=== PATIENT | male | born 1970 | race Caucasian/White ===

== ENCOUNTER 2016-10-31 13:53 | Emergency (ER) | payer MEDICARE, OTHER ==
[~2016-10-31] VITALS: Ht 160 cm; Wt 112.5 kg
[~2016-10-31 13:53] MED LIST: ASPI81TA3 PO; ATEN-51 PO; CYCL-319 PO; ETOD400T PO; FLUO20CA38 PO; HYDR-3498 PO; IBUP-1542 PO; IBUP800T25 PO; LISI20TA11 PO; MIRT45TA PO; NOV SC; OMEP20CA16 PO; ONDA4TAB35 PO; ONDA4TAB8 PO; OXYC-284 PO; PEN500 PO; SIMV20TA2 PO; SS SC; TRAZ300T15 PO
[2016-10-31 13:55] VITALS: Ht 160 cm; Wt 112.5 kg
--- NOTE | 2016-10-31 15:36 | RADRPT ---
PROCEDURE: XR Chest. CLINICAL INDICATION: Cough. TECHNIQUE: Single frontal view. COMPARISON: 08/02/2015. FINDINGS: The lungs are clear. The heart size is normal. There is no pleural effusion or pneumothorax. There are old healed right rib fractures. IMPRESSION: 1. Old healed right rib fractures. 2. Otherwise normal chest radiograph. RPTAT: QQ .Jay Biggs MD, MD Date Time Electronically viewed and signed by .Jay Biggs MD, on 10/31/2016 15:36 .R/
[2016-10-31] MEDS ORDERED: ALBU8.5H3 INH (15:47)
[2016-10-31] MEDS ORDERED: AZIT250T94 PO (15:47)
[2016-10-31] MEDS ORDERED: D-ME473S2 PO (15:48)
[2016-10-31] MEDS ORDERED: POLY10DR19 BOTH EYES (15:51)
--- NOTE | 2016-12-05 09:30 | ERD ---
ER Documentation Chief Complaint Date/Time DATE: 12/05/16 TIME: 09:27 Chief Complaint COUGH,ST HPI Patient is a 46 year old male with a past medical history of drug abuse and multiple visits to the ER and asthma who presents with cough, runny nose and congestion and bilateral eye itchiness x 2 days. Patient states his mother has similar symptoms. Patient states that he has not tried over the counter medication for his symptoms. He denies fevers, chills, hemoptysis, night sweats or TB exposure. Denies leg pain or leg swelling. denies shortness of breath, difficulty breathing or chest pain. Denies headache or dizziness. Denies abdominal pain, nausea, vomiting or diarrhea. Patient states that "promethazine with codeine always is prescribed to me." ROS All systems reviewed and are negative except as per history of present illness. Medications Home Meds Active Scripts Polymyxin B Sulfate-TMP* (Polymyxin B-TMP Eye Drops*) 10 Ml Drops, 1 DROP BOTH EYES QID for 7 Days, EA Prov:DAYANA RAMOS PA-C 10/31/16 Dextromethorphan Hb-Promethazine Hcl* (Promethazine DM* Syrup) 473 Ml Syrup, 5 ML PO Q6 Y for COUGH for 7 Days, ML Prov:DAYANA RAMOS PA-C 10/31/16 Albuterol Sulfate* (Proair HFA*) 8.5 Gm Hfa.aer.ad, 2 PUFF INH Q4, #1 INHALER Prov:DAYANA RAMOS PA-C 10/31/16 Azithromycin* (Zithromax*) 250 Mg Tablet, 250 MG PO .JOSE DIRECTED, #6 TAB TAKE 500 MG (2 TABS) THE FIRST DAY THEN 250 MG (1 TAB) DAYS 2-5 Prov:DAYANA RAMOS PA-C 10/31/16 Ibuprofen* (Motrin*) 600 Mg Tab, 600 MG PO Q6H Y for PAIN AND OR ELEVATED TEMP, #30 TAB Prov:NAKUL CHURCHILL MD 08/06/15 Cyclobenzaprine Hcl* (Cyclobenzaprine Hcl*) 10 Mg Tablet, 10 MG PO TID, #15 TAB Prov:ALBERT SCHROEDER 08/02/15 Ibuprofen* (Motrin*) 600 Mg Tab, 600 MG PO Q6, #30 TAB Prov:ALBERT SCHROEDER [employer] 08/02/15 Hydrocodone Bit-Acetaminophen* ([place]*) 5-325 Mg Tab, 1 TAB PO Q6 Y for PAIN, # 15 TAB Prov:ALBERT SCHROEDER [employer] 08/02/15 Ondansetron Hcl* (Zofran*) 4 Mg Tablet, 4 MG PO Q6H for NAUSEA AND/OR VOMITING, #30 TAB Prov:ALBERT SCHROEDER [employer] 06/17/15 Ondansetron Hcl* (Zofran* ODT) 4 mg -ODT Tab.disper, 4 MG PO Q6 Y for NAUSEA AND OR VOMITING, #6 TAB [facility] 06/16/15 Etodolac (Etodolac) 400 Mg Tablet, 400 MG PO Q6 Y for PAIN, #10 TAB Prov:[facility] 06/16/15 Oxycodone Hcl-Acetaminophen* (Percocet*) 10-325 Mg Tablet, 1 TAB PO Q6 Y for PAIN LEVEL 7-10, #16 TAB Prov[facility] 06/16/15 Hydrocodone Bit-Acetaminophen* ([place]*) 5-325 Mg Tab, 1 TAB PO Q6 Y for PAIN, # 7 TAB Prov:ALBERT SCHROEDER [employer] 03/28/15 Penicillin V Potassium* (Penicillin V K*) 500 Mg Tab, 500 MG PO QID for 10 Days , TAB Prov:ELDA,ALBERT C 03/28/15 Ibuprofen* (Motrin*) 800 Mg Tab, 800 MG PO Q6H Y for PAIN AND OR ELEVATED TEMP, #30 TAB Prov:ARTI SHARMA PA-C 10/04/14 Hydrocodone Bit-Acetaminophen* ([place]*) 5-325 Mg Tab, 1 TAB PO Q6 Y for PAIN, # 15 TAB Prov:JAYLEN ALFONSO NP 10/04/14 Reported Medications Omeprazole* (Omeprazole*) 20 Mg Capsule.dr, 20 MG PO BID, CAP 03/18/14 Mirtazapine* (Mirtazapine* ODT) 45 Mg/Udtablet Tab.rapdis, 90 MG PO HS, TAB 03/18/14 Simvastatin (Simvastatin) 20 Mg Tablet, 20 MG PO HS, TAB 03/18/14 Insulin Aspart* (Novolog Insulin Vial*) 100 U/Ml Vial, 0 SC SLIDING SCALE AC, VIAL 03/18/14 Lisinopril* (Lisinopril*) 20 Mg Tablet, 20 MG PO BID, TAB 03/18/14 Insulin Human Regular (Novolin-R U-100) 100 Unit/Ml Soln, 0 SC SLIDING SCALE AC , EA 03/18/14 Atenolol* (Atenolol*) 25 Mg Tablet, 25 MG PO DAILY, TAB 03/18/14 Aspirin* (Aspirin* Chew) 81 Mg Tab.chew, 81 MG PO DAILY, TAB.CHEW 03/18/14 Trazodone Hcl* (Trazodone Hcl*) 300 Mg Tablet, 300 MG PO HS 05/15/11 Fluoxetine Hcl* (Prozac*) 20 Mg Capsule, 20 MG PO BID 05/15/11 Allergies Allergies: Coded Allergies: No Known Drug Allergies (Verified Allergy, Unknown, 08/06/15) PMhx/Soc History of Surgery: No Anesthesia Reaction: No Hx Neurological Disorder: No Hx Respiratory Disorders: No Hx Cardiac Disorders: No Hx Psychiatric Problems: No Hx Miscellaneous Medical Probl: No Hx Alcohol Use: No Hx Substance Use: No Hx Tobacco Use: No Smoking Status: Never smoker FmHx Family History: No coronary disease, No diabetes, No other Physical Exam Physical Exam GENERAL: Well-developed, well-nourished male. Appears in no acute distress. Speaking in full sentences per HEAD: Normocephalic, atraumatic. EYES: Pupils are equally reactive bilaterally. EOMs grossly intact. Mild conjunctival erythema and bilateral eyes. With discharge. ENT: Moist mucous membranes. No uvula deviation. No kissing tonsils. No exudates. NECK: Supple. No lymphadenopathy or thyromegaly. No meningismus. negative kernig. negative brudinski. LUNG: Clear to auscultation bilaterally. No rhonchi, wheezing, rales or coarse breath sounds. No retractions. HEART: Regular rate and rhythm. No murmurs, rubs or gallops. Extremities: Equal pulses bilaterally. No peripheral clubbing, cyanosis or edema. No unilateral leg swelling. NEUROLOGIC: Alert and oriented. Moving all four extremities. 5/5 strength in all extremities. Normal speech. Steady gait. SKIN: Normal color. Warm and dry. No rashes or lesions. Capillary refill < 2 seconds Procedures/MDM ER COURSE: I kept the patient and/or family informed of laboratory and diagnostic imaging results throughout the emergency room course. IMAGING STUDIES [place] [address] Radiology Main Line: [phone] DIAGNOSTIC IMAGING REPORT Patient: SAMMI HUERTA : 1970 Age: 46 Sex: M MR #: [id number] DOS: 10/31/16 1449 Ordering MD: DAYANA RAMOS PA-C Location: [facility] Room/Bed: PROCEDURE: XR Chest. CLINICAL INDICATION: Cough. TECHNIQUE: Single frontal view. COMPARISON: 08/02/2015. FINDINGS: The lungs are clear. The heart size is normal. There is no pleural effusion or pneumothorax. There are old healed right rib fractures. IMPRESSION: 1. Old healed right rib fractures. 2. Otherwise normal chest radiograph. RPTAT: QQ .Jay Biggs MD, MD Date Time Electronically viewed and signed by .Jay Biggs MD, MD on 10/31/2016 15:36 .R/ CC: DAYANA RAMOS PA-C MEDICAL DECISION MAKING: This is a 46-year-old male who presents with cough and bilateral eye itchiness and drainage. Vital signs were reviewed. Patient is afebrile. Patient is not hypoxic. Patient is nontoxic or ill-appearing. X-rays are by radiologist unremarkable. Patient likely has URI of viral etiology. Patient also has conjunctivitis. Low suspicion for acute angle closure glaucoma, retinal detachment, arterial occlusion, hemorrhage, fracture, foreign body, ruptured globe, orbital cellulitis. Low suspicion for pneumonia, PE, pneumothorax, ACS, epiglottitis, obstruction, TB, pertussis, meningitis, sepsis. Low suspicion for ACS, PE, AAA, dissection, DVT. Patient will not be given promethazine with codeine in the ED as I have suspicion of drug abuse. DISCHARGE: At this time, patient is stable for discharge and outpatient management with no new complaints during the ER course. Patient was sent home with Polytrim and Promethazine DM and a copy of imaging report. Patient will be discharged home with instructions to recheck for new or worsening symptoms such as fever, nausea , weakness, LOC and to follow up with primary care in the next 1-2 days. Patient was advised to return to the ER for any new or worsening symptoms. Plan was discussed and patient and/or family understands and agrees. Home instructions were given. Departure Diagnosis: Primary Impression: Conjunctivitis Conjunctivitis type: unspecified Laterality: bilateral Qualified Code: H10.9 - Conjunctivitis of both eyes, unspecified conjunctivitis type Additional Impression: Cough Condition: Stable Patient Instructions: Cough, Chronic, Uncertain Cause, (Adult) Referrals: DOCTOR,NOT ON STAFF (PCP) Additional Instructions: Call your primary care doctor TOMORROW for an appointment during the next 1-2 days.See the doctor sooner or return here if your condition worsens before your appointment time. DAYANA RAMOS PA-C Dec 05, 2016 09:30
== END 2016-10-31 16:06 | disposition home or self-care (01) ==
LOC: FTE 13:53
DX: H10.9 Unspecified conjunctivitis (principal); E11.9 Type 2 diabetes mellitus without complications; Z79.4 Long term (current) use of insulin; Z79.82 Long term (current) use of aspirin
CPT/HCPCS: 71010

== ENCOUNTER 2016-12-13 08:35 | Emergency (ER) | payer MEDICARE, OTHER ==
[~2016-12-13] VITALS: Wt 112.0 kg
[~2016-12-13 08:35] MED LIST changes: +ALBU8.5H3 INH; +AZIT250T94 PO; +D-ME473S2 PO; +POLY10DR19 BOTH EYES
[2016-12-13] MEDS ORDERED: GLUCOSE GEL 15 GRAM TUBE ONE (09:17)
[2016-12-13] MEDS ORDERED: AMO500 PO (09:26)
[2016-12-13] MEDS ORDERED: GLUCOSE GEL 24 GRAMS PO ONE (09:30)
--- NOTE | 2016-12-13 09:43 | ERD ---
ER Documentation Chief Complaint Date/Time DATE: 12/13/16 TIME: 09:31 Chief Complaint DENTAL PAIN HPI 46 year old male with history of DMII presents with chief complaint of left upper dental pain, rating it moderate to severe. Patient is requesting pain medication and morphine. He states he has not tried any medications. He states that he thinks his glucose level is elevated. He denies fever, chest pain, shortness of breath. ROS All systems reviewed and are negative except as per history of present illness. Medications Home Meds Active Scripts Amoxicillin* (Amoxicillin*) 500 Mg Cap, 500 MG PO TID for 10 Days, CAP Prov:TEODORO LEONE PA-C 12/13/16 Polymyxin B Sulfate-TMP* (Polymyxin B-TMP Eye Drops*) 10 Ml Drops, 1 DROP BOTH EYES QID for 7 Days, EA Prov:DAYANA RAMOS PA-C 10/31/16 Dextromethorphan Hb-Promethazine Hcl* (Promethazine DM* Syrup) 473 Ml Syrup, 5 ML PO Q6 Y for COUGH for 7 Days, ML Prov:DAYANA RAMOS PA-C 10/31/16 Albuterol Sulfate* (Proair HFA*) 8.5 Gm Hfa.aer.ad, 2 PUFF INH Q4, #1 INHALER Prov:DAYANA RAMOS PA-C 10/31/16 Azithromycin* (Zithromax*) 250 Mg Tablet, 250 MG PO .ZPACK DIRECTED, #6 TAB TAKE 500 MG (2 TABS) THE FIRST DAY THEN 250 MG (1 TAB) DAYS 2-5 Prov:DAYANA RAMOS PA-C 10/31/16 Ibuprofen* (Motrin*) 600 Mg Tab, 600 MG PO Q6H Y for PAIN AND OR ELEVATED TEMP, #30 TAB Prov:NAKUL CHURCHILL MD 08/06/15 Cyclobenzaprine Hcl* (Cyclobenzaprine Hcl*) 10 Mg Tablet, 10 MG PO TID, #15 TAB Prov:ALBERT SCHROEDER 08/02/15 Ibuprofen* (Motrin*) 600 Mg Tab, 600 MG PO Q6, #30 TAB Prov:ALBERT SCHROEDER 08/02/15 Hydrocodone Bit-Acetaminophen* ([place]*) 5-325 Mg Tab, 1 TAB PO Q6 Y for PAIN, # 15 TAB Prov:ALBERT SCHROEDER [employer] 08/02/15 Ondansetron Hcl* (Zofran*) 4 Mg Tablet, 4 MG PO Q6H for NAUSEA AND/OR VOMITING, #30 TAB Prov:ALBERT SCHROEDER [employer] 06/17/15 Ondansetron Hcl* (Zofran* ODT) 4 mg -ODT Tab.disper, 4 MG PO Q6 Y for NAUSEA AND OR VOMITING, #6 TAB Prov:[facility] 06/16/15 Etodolac (Etodolac) 400 Mg Tablet, 400 MG PO Q6 Y for PAIN, #10 TAB [facility] 06/16/15 Oxycodone Hcl-Acetaminophen* (Percocet*) 10-325 Mg Tablet, 1 TAB PO Q6 Y for PAIN LEVEL 7-10, #16 TAB [facility] 06/16/15 Hydrocodone Bit-Acetaminophen* ([place]*) 5-325 Mg Tab, 1 TAB PO Q6 Y for PAIN, # 7 TAB Prov:ALBERT SCHROEDER [employer] 03/28/15 Penicillin V Potassium* (Penicillin V K*) 500 Mg Tab, 500 MG PO QID for 10 Days , TAB Prov:ALBERT SCHROEDER [employer] 03/28/15 Ibuprofen* (Motrin*) 800 Mg Tab, 800 MG PO Q6H Y for PAIN AND OR ELEVATED TEMP, #30 TAB Prov:ARTI SHARMA PALanceC 10/04/14 Hydrocodone Bit-Acetaminophen* ([place]*) 5-325 Mg Tab, 1 TAB PO Q6 Y for PAIN, # 15 TAB Prov:JAYLEN ALFONSO NP 10/04/14 Reported Medications Omeprazole* (Omeprazole*) 20 Mg Capsule.dr, 20 MG PO BID, CAP 03/18/14 Mirtazapine* (Mirtazapine* ODT) 45 Mg/Udtablet Tab.rapdis, 90 MG PO HS, TAB 03/18/14 Simvastatin (Simvastatin) 20 Mg Tablet, 20 MG PO HS, TAB 03/18/14 Insulin Aspart* (Novolog Insulin Vial*) 100 U/Ml Vial, 0 SC SLIDING SCALE AC, VIAL 03/18/14 Lisinopril* (Lisinopril*) 20 Mg Tablet, 20 MG PO BID, TAB 03/18/14 Insulin Human Regular (Novolin-R U-100) 100 Unit/Ml Soln, 0 SC SLIDING SCALE AC , EA 03/18/14 Atenolol* (Atenolol*) 25 Mg Tablet, 25 MG PO DAILY, TAB 03/18/14 Aspirin* (Aspirin* Chew) 81 Mg Tab.chew, 81 MG PO DAILY, TAB.CHEW 03/18/14 Trazodone Hcl* (Trazodone Hcl*) 300 Mg Tablet, 300 MG PO HS 05/15/11 Fluoxetine Hcl* (Prozac*) 20 Mg Capsule, 20 MG PO BID 05/15/11 Allergies Allergies: Coded Allergies: No Known Drug Allergies (Verified Allergy, Unknown, 08/06/15) PMhx/Soc History of Surgery: No Anesthesia Reaction: No Hx Neurological Disorder: No Hx Respiratory Disorders: No Hx Cardiac Disorders: No Hx Psychiatric Problems: No Hx Miscellaneous Medical Probl: No Hx Alcohol Use: No Hx Substance Use: No Hx Tobacco Use: No Physical Exam Vitals Vital Signs Date Time Temp Pulse Resp B/P Pulse Ox O2 Delivery O2 Flow Rate FiO2 12/13/16 08:42 98.0 85 17 120/77 96 Physical Exam Const: WD/WN Head: Atraumatic. No facial swelling Eyes: Normal Conjunctiva ENT: Normal External Ears, Nose and Mouth. Neck: Full range of motion..~ No meningismus. Resp: Clear to auscultation bilaterally Cardio: Regular rate and rhythm, no murmurs Abd: Soft, non tender, non distended. Normal bowel sounds Skin: No petechiae or rashes Back: No midline or flank tenderness Ext: No cyanosis, or edema Neur: Awake and alert Psych: Normal Mood and Affect Results 24 hrs Laboratory Tests Test 12/13/16 09:07 Bedside Glucose 43mg/dL Procedures/MDM 46 year old male presents complaining of left upper dental pain requesting morphine. On examination, I did not note any dental abscess, facial cellulitis. He is afebrile. Patient exhibits drug seeking behavior. CURES report has been pulled up and patient had extensive report with the latest filing be 240 tablets of [place] 10/325mg about 2 days prior to being seen. I did not give him any narcotics. I have given him antibiotics for possible dental infection and discussed with him to go to his dentist, he states he has appointment on Friday. Patient states he thinks his glucose level is high, accu-check showed glucose of 45 and he was given glucose gel. Patient is stable to be discharged home to follow up with PCP and dentist. He understands and agrees with plan Departure Diagnosis: Primary Impression: Drug-seeking behavior Additional Impression: Pain, dental Condition: Stable Patient Instructions: Dental Pain Additional Instructions: FOLLOW UP WITH YOUR PRIMARY CARE PHYSICIAN TOMORROW.Return to this facility if you are not improving as expected. Take all medicines as directed. Return to this facility if you are not improving as expected. TEODORO LEONE PA-C Dec 13, 2016 09:43
[2016-12-13] MEDS ORDERED: GLUCOSE GEL 15 GRAM TUBE BUCCAL PRN (10:30)
[2016-12-13] MEDS ORDERED: GLUCAGON 1 MG INJ IM PRN (10:30)
[2016-12-13] MEDS ORDERED: DEXTROSE 50% 50 ML SYRINGE IV PRN ×2 (10:30)
[2016-12-13] MEDS ORDERED: GLUCOSE GEL 15 GRAM TUBE PO PRN ×2 (10:30)
== END 2016-12-13 10:10 | disposition home or self-care (01) ==
LOC: FTE 08:35
DX: K08.89 Other specified disorders of teeth and supporting structures (principal); E11.9 Type 2 diabetes mellitus without complications; Z76.5 Malingerer [conscious simulation]; Z79.4 Long term (current) use of insulin; Z79.82 Long term (current) use of aspirin
CPT/HCPCS: 82962; 99283

== ENCOUNTER 2017-08-25 22:57 | Emergency (ER) | END 2017-08-26 01:50 | disposition home or self-care (01) ==

== ENCOUNTER 2017-09-05 14:49 | Emergency (ER) | END 2017-09-05 15:15 | disposition home or self-care (01) ==

== ENCOUNTER 2018-04-08 18:52 | Emergency (ER) | END 2018-04-08 20:33 | disposition home or self-care (01) ==

== ENCOUNTER 2018-12-22 14:53 | Emergency (ER) | payer MEDICARE, OTHER ==
[~2018-12-22] VITALS: Ht 167.6 cm; Wt 111.7 kg
[~2018-12-22 14:53] MED LIST changes: -ALBU8.5H3 INH; +ALBU8.5H8 INH; +AMOX500C2 PO; +ASPI-903 PO; -ASPI81TA3 PO; +AZIT250T PO; -AZIT250T94 PO; +BACITUD TOP; +CEPH-443 PO; +CLIN300C10 PO; -CYCL-319 PO; +CYCL10TA7 PO; -IBUP800T25 PO; +IBUP800T48 PO; +LISI-471 PO; -LISI20TA11 PO; +NAPR-985 PO; -PEN500 PO; +PENI500T PO; +SLF10OP15 LEFT EYE; +SULF1TAB31 PO
[2018-12-22 15:18] VITALS: BP 152/110; PULSE 73; RESP 18; Ht 167.6 cm; Wt 111.7 kg
[2018-12-22] MEDS ORDERED: HYDROCODONE/APAP (10/325) TAB PO ONE (17:30)
== END 2018-12-22 17:34 | disposition home or self-care (01) ==
LOC: FTE 14:53
DX: G89.4 Chronic pain syndrome (principal); I10 Essential (primary) hypertension; E11.9 Type 2 diabetes mellitus without complications; Z79.4 Long term (current) use of insulin; Z79.82 Long term (current) use of aspirin
CPT/HCPCS: 99283